=== PATIENT | female | born 1965 | race Caucasian/White ===

== ENCOUNTER → 2017-06-12 | Outpatient (CLI) | payer OTHER ==
[~2017-06-12] MED LIST: DIFLUCAN150 MG PO; METROGEL-VAGINA70 GM VAG; NORCO 5-325 TA1 EACH PO; ZYRTEC10 M2 PO
== END ==
LOC: RAD 05-29 01:07
DX: R92.0 Mammographic microcalcification found on diagnostic imaging of breast (principal)

== ENCOUNTER → 2017-12-05 | Outpatient (CLI) | payer OTHER | LOC: RAD 00:30 | DX: Z12.31 Encounter for screening mammogram for malignant neoplasm of breast (principal) ==

== ENCOUNTER → 2018-10-02 | Outpatient (CLI) | payer OTHER ==
[~2018-10-02] VITALS: Ht 175.3 cm; Wt 86.2 kg
[~2018-10-02] MED LIST changes: +SINGULAIR 10 MG10 M1 PO
--- NOTE | ~2018-10-02 | PATH ---
[facility] [address] [place] [address] PATHOLOGY RPT PROCEDURE Name: KAMILAH FALCON Room #: REG [facility] M..#: [id number] Admission: 10/02/18 Date of : 69 Discharge: Report #: [id number] Path Case #: [id number] [facility] Accession Number: [id number] . 01 Material submitted: . POLYP HEPATIC FLEXURE . 01 Clinical history: . Pre-OP DX: Hx colon polyps, family HX colon polyps Post-OP DX: Colon polyp . 02 Diagnosis: Polyp, hepatic flexure, endoscopic biopsy: - Tubular adenoma. - Negative for high-grade dysplasia. (IUV:kranthi; 10/03/2018) QMS/10/03/2018 . 02 Electronically signed: . Vicenta Luz MD, Pathologist NPI- [id number] . 01 Gross description: . Received in formalin labeled "Kamilah Falcon, polyp hepatic flexure BX," are 2 segments of ferguson soft tissue measuring 0.9 x 0.3 x 0.2 cm in aggregate dimensions and ranging from 0.4 to 0.5 cm in maximum dimension. The specimen is submitted entirely in cassette A1. (TSD; 10/02/2018) TOB/TOB . 02 Pathologist provided ICD-10: D12.3 . 02 CPT . 244099 Specimen Comment: A courtesy copy of this report has been sent to Specimen Comment: [phone], . Specimen Comment: Report sent to / DR BHATT Performed at: [address] [id number] MD Bull Meehan MD Phone: [phone] Performed at: [address] [id number] MD Vicenta Luz MD Phone: [phone]
--- NOTE | ~2018-10-02 | P ---
[facility] [place] [address] PROCEDURE REPORT Name: KAMILAH FALCON Room #: REG [facility].#: [id number] Admission: 10/02/18 Attend Phys: Donald Dewey MD Discharge: Date of : 69 Report #: [id number] THIS REPORT FOR: //name// CC: Donald Pinto MD BRIEF HISTORY: The patient is a 52-year-old woman with a history of three colon adenomas in the past. Also there is a family history of colon polyps in mother and some siblings. She has 12 siblings. PREOPERATIVE DIAGNOSIS: History of colon polyps. POSTOPERATIVE DIAGNOSES: 1. Diminutive polyp, hepatic flexure. 2. Mild to moderate sigmoid diverticulosis coli. MEDICATIONS: Deep sedation with propofol per anesthesia. SPECIMEN: Polyp from hepatic flexure. ESTIMATED BLOOD LOSS: 3 mL. PROCEDURE: Colonoscopy to the cecum and terminal ileum with biopsy. FINDINGS: Prior to propofol sedation, procedure of colonoscopy discussed with the patient as well as potential risks and its complications. She indicates she understands and desires to proceed. DESCRIPTION OF PROCEDURE: With the patient in the left lateral decubitus position, digital examination was completed, which revealed no abnormalities. Subsequently, the Olympus video colonoscope was introduced in the rectum, advanced under direct vision to the cecum. Done with minimal difficulty. The cecum was identified by the ileocecal valve and the appendiceal orifice. I was able to visualize the distal segment of the terminal ileum, which was inspected and noted to be unremarkable. At that point, the scope was withdrawn and careful circumferential views were obtained. Upon slow withdrawal of the scope, the prep was excellent. The mucosa was within normal limits, normal vascular pattern and normal light reflex. As we withdrew the scope, no abnormalities were noted until the hepatic flexure was reached at which point a diminutive polyp was seen and removed by biopsy. The scope was further withdrawn and no additional polyps were seen. She had normal mucosa throughout the remainder of the colon. In the sigmoid colon, she had [id number] sigmoid diverticular disease without endoscopic evidence of diverticulitis. The scope was withdrawn into the rectum and no abnormalities were seen. On retroflexion, no abnormalities were noted. The scope was withdrawn. The patient tolerated the procedure well. [address] [address] PROCEDURE REPORT Name: KAMILAH FALCON Room #: REG [facility].#: [id number] Admission: 10/02/18 Attend Phys: Donald Dewey MD Discharge: Date of : 69 Report #: [id number] CONDITION OF THE PATIENT UPON DISCHARGE: Following procedure, the patient drowsy, arousable and conversant. She will be discharged home when fully ambulatory. INSTRUCTIONS TO THE PATIENT AND FAMILY AT THE TIME OF DISCHARGE: We will follow up on the path of the polyp. If this is an adenoma, she should return in 5 years. If it is not an adenoma, then 10 years would be indicated. The patient's last colonoscopy was approximately 5 years ago. Withdrawal time from the cecum was 11 minutes 42 seconds. By: [id number] Donald Dewey MD /nt
== END | disposition home or self-care (01) ==
LOC: GI 06:19
DX: Z12.11 Encounter for screening for malignant neoplasm of colon (principal); Z86.010 Personal history of colon polyps; Z83.71 Family history of colonic polyps; K63.5 Polyp of colon; K57.30 Diverticulosis of large intestine without perforation or abscess without bleeding; Z87.891 Personal history of nicotine dependence; Z90.49 Acquired absence of other specified parts of digestive tract; Z90.710 Acquired absence of both cervix and uterus; Z98.890 Other specified postprocedural states; Z79.899 Other long term (current) drug therapy; Z88.0 Allergy status to penicillin; Z88.8 Allergy status to other drugs, medicaments and biological substances
CPT/HCPCS: 62110; 62900

== ENCOUNTER → 2020-06-08 | Outpatient (CLI) | payer OTHER | LOC: BC 08:42 | PROVIDERS: ATTEND Obstetrics & Gynecology | DX: Z12.31 Encounter for screening mammogram for malignant neoplasm of breast (principal) ==

== ENCOUNTER → 2021-06-13 | Outpatient (CLI) | payer OTHER | LOC: BC 08:56 | PROVIDERS: ATTEND Obstetrics & Gynecology | DX: Z12.31 Encounter for screening mammogram for malignant neoplasm of breast (principal) ==